=== PATIENT | female | born 1995 | race Caucasian/White ===

== ENCOUNTER 2023-07-15 18:32 | Emergency (ER) | payer OTHER, SELFPAY ==
[2023-07-15 18:47] VITALS: BP 129/8; PULSE 78; RESP 18; TEMP 36.7; O2SAT 99; BMI 21.2
--- NOTE | 2023-07-15 18:51 | DI.RAD.S_ITS ---
PROCEDURE: XR WRIST LT MIN 3V INDICATIONS: injury TECHNIQUE: 4 views of the wrist were acquired. COMPARISON: None. FINDINGS: Bones: Nondisplaced comminuted fracture of the distal radius. No suspicious bony lesions. Soft tissues: No suspicious soft tissue calcifications. IMPRESSION: Nondisplaced comminuted fracture of the distal radius. Dictated by: Calvin Stanton M.D. on 07/15/2023 at 19:32 Approved by: Calvin Stanton M.D. on 07/15/2023 at 19:32
--- NOTE | 2023-07-15 20:52 | ED_ITS ---
HPI - General Adult General Chief complaint: Extremity Injury, Upper Stated complaint: wrist injury Time Seen by Provider: 07/15/23 19:36 Source: patient and family Mode of arrival: Family Vehicle History of Present Illness HPI narrative: Otherwise healthy 27-year-old woman who was playing football with some friends landed on her back and then her left arm went above her head with her wrist hitting the ground. She noticed immediate pain and comes in for further evaluation. She is otherwise neurovascularly intact. There are no other injuries of concern Related Data Allergies Allergy/AdvReac Type Severity Reaction Status Date / Time sulfamethoxazole Allergy Unknown Rash Verified 07/15/23 18:50 [From ] trimethoprim [From ] Allergy Unknown Rash Verified 07/15/23 18:50 Review of Systems Review of Systems Narrative: Pertinent positive and negative findings as per HPI Patient History Social History Smoking Status: Never smoker Smoking Status: Never smoker alcohol intake frequency: a few times a month Substance Use Type: does not use Exam Initial Vital Signs Initial Vital Signs: Vital Signs Temperature 98.1 F 07/15/23 18:47 Pulse Rate 78 07/15/23 18:47 Respiratory Rate 18 07/15/23 18:47 Blood Pressure 129/8 L 07/15/23 18:47 Pulse Oximetry 99 07/15/23 18:47 Oxygen Delivery Method Room Air 07/15/23 18:47 General: Alert appropriate in no acute distress Respiratory: Able to speak in full sentences, no obvious respiratory distress Skin: No obvious rashes, warm and dry Neurologic: Grossly intact no obvious asymmetries or abnormalities Psych: appropriate insight and affect, cooperative Extremity: Tenderness over the distal radius left side without significant swelling, contusion or abrasion. She is neurovascularly intact Procedures Orthopedic Splinting/Casting Left wrist: Time of procedure: 20:53 Side: left Upper Extremity Injury Location: wrist Upper Extremity Immobilizer: sling/shoulder immobilizer Post splinting neuro exam: intact Post splinting vascular exam: intact Placed by: Nursing Additional Comments: Sugar-tong splint placed Course Orders Ordered: ED Orders 07/15/23 18:51 XR wrist LT min 3V Stat Vital Signs Vital signs: Vital Signs - 8 hr 07/15/23 18:47 Temperature 98.1 F Pulse Rate 78 Respiratory Rate 18 Blood Pressure 129/8 L Pulse Oximetry 99 Oxygen Delivery Method Room Air Medical Decision Making [facility] Narrative Medical decision making narrative: CC: Left wrist pain Data collected from: patient Exam documented above, pertinent findings include: Tenderness of the left wrist without significant swelling or bruising. Neurovascularly intact distally Imaging studies independently reviewed: Nondisplaced slightly comminuted fracture distal radius not involving the joint Treatments: She declines pain medication. Sugar-tong splint is placed with sling on top Discussion: Otherwise healthy 27-year-old woman with it distal radius fracture not involving the joint. She does live in [place] and plans to follow up with Orthopedic surgery in [place]. Instructed her to contact them on January 15 and leave the splint in place until she is further evaluated for definitive treatment of her left wrist fracture. She is safe for discharge Discharge Plan Departure Patient Disposition: Home Clinical Impression: Fracture of wrist Qualifiers: Encounter type: initial encounter Fracture type: closed Laterality: left Qualified Code(s): S62.102A - Fracture of unspecified carpal bone, left wrist, initial encounter for closed fracture Instructions: DI for Wrist Fracture Activity Restrictions/Additional Instructions: Thank you for coming in today I am sorry one of your [place] presents this year as a broken wrist. Fortunately it should heal nicely You will need to follow-up with an orthopedic surgeon for definitive treatment of your distal radius fracture. In the meantime please keep the splint in place and use the sling to help support the splint Using 400 mg of ibuprofen (2 [id number] pills) and 1 Tylenol every 6 hours can be very helpful in controlling pain. If you find that you are getting worse or develop any new symptoms, please feel free to return to the emergency department for further evaluation. Referrals: Crow Hickey MD [Primary Care Provider] - Stand Alone Forms: Patient Portal/API
[2023-07-15 21:05] VITALS: BP 124/70; PULSE 81; RESP 16; TEMP 37.2; O2SAT 100
== END 2023-07-15 21:05 | disposition home or self-care (01) ==
PROVIDERS: Emergency Provider Emergency Medicine; Family Provider Family Medicine; PCP Family Medicine
DX: S62.102A Fracture of unspecified carpal bone, left wrist, initial encounter for closed fracture (principal); W18.30XA Fall on same level, unspecified, initial encounter; Y93.61 Activity, american tackle football
CPT/HCPCS: 73110; 99283